=== PATIENT | male | born 1955 | race Caucasian/White ===

== ENCOUNTER 2017-02-06 09:35 | Day surgery (SDC) | payer OTHER ==
[2017-02-06] VITALS (9 sets, daily range): BP systolic 94–162; BP diastolic 50–96; PULSE 71–85; TEMP 97.4–97.5
[~2017-02-06] VITALS: Ht 182.9 cm; Wt 117.5 kg
[~2017-02-06 09:35] MED LIST: AMBIEN 10MG10 MG PO; COZAAR 50MG50 MG/TAB PO; FLOMAX 0.40.4 MG/CAP PO; HCTZ 25MG TAB25 MG PO; MULTIVITAMIN1 CTB PO; NEXIUM 40MG40 MG PO; NORCO 325 MG-7.1 TAB PO; PERCOCET 325 MG1 TA3 PO; XANAX .25M0.25 MG/TA PO; ZESTRIL 10MG10 MG PO
[2017-02-07 01:29] VITALS: BP 129/65; PULSE 83; TEMP 98
[2017-02-07 05:46] VITALS: BP 146/75; PULSE 78; TEMP 98.4
[2017-02-07 08:38] VITALS: BP 143/64; PULSE 74; TEMP 97.7
[2017-02-07 13:24] VITALS: BP 118/59; PULSE 73; TEMP 98.1
[2017-02-07 17:01] VITALS: BP 140/71; PULSE 74; TEMP 97.4
== END 2017-02-07 18:42 | disposition home or self-care (01) ==
LOC: SDCO 09:35 → SURG 17:10 → SDCO 02-07 18:42
DX: K43.2 Incisional hernia without obstruction or gangrene (principal)
CPT/HCPCS: OP; A4315; A9284; C1713; C1781; J0690; J1100; J1170; J1885; J2270; J2405; J2704; J3010; J7042; J7120